=== PATIENT | female | born 1995 | race Caucasian/White ===

== ENCOUNTER 2018-04-25 18:54 | Emergency (ER) | payer OTHER ==
[2018-04-25 19:00] VITALS: BP 120/68
[2018-04-25] MEDS ORDERED: LIDOCAINE 2% VISCOUS SOLN 20 ML UDCUP PO ONE (19:14)
--- NOTE | 2018-04-25 19:14 | ER Document Report ---
HPI - HPI Patient complains to provider of: toothache Onset: Other Quality of pain: Achy - Several days Pain Level: 4 Context: 22-year-old female complaining of lower right dental decay and pain for several days. No fever or chills. No facial swelling. Associated Symptoms: None Exacerbated by: Other - Chewing Relieved by: Denies Similar symptoms previously: No Recently seen / treated by doctor: No - ROS ROS below otherwise negative: Yes Systems Reviewed and Negative: Yes All other systems reviewed and negative Past Medical History - General Information source: Patient - Social History Smoking Status: Never Smoker Lives with: Spouse/Significant other Family History: Reviewed & Not Pertinent - Medical History Medical History: Negative Surgical Hx: Negative Vertical Provider Document - CONSTITUTIONAL Agree With Documented VS: Yes Exam Limitations: No Limitations - INFECTION CONTROL TRAVEL OUTSIDE OF THE [place] IN LAST 30 DAYS: No - HEENT HEENT: negative: Pharyngeal Erythema Notes: Lower right second molar with decay and inflammation to the gingiva, no abscess - NECK Neck: Supple. negative: Lymphadenopathy-Left, Lymphadenopathy-Right Course - Re-evaluation Re-evalutation: 04/25/18 19:55 Patient was discharged prior to my physical exam accidentally because I typed someone else's paperwork on her chart. The patient has returned to the emergency department and I had examined her. She does have dental decay without abscess to the second lower right molar. She denies . Her treatment will be the topical lidocaine that was given to her initially penicillin Motrin and Tylenol. She does have a dentist in plans on seeing him soon. - Vital Signs Vital signs: Temp Pulse Resp BP Pulse Ox 98.6 F 72 20 120/68 100 04/25/18 18:59 04/25/18 18:59 04/25/18 18:59 04/25/18 18:59 04/25/18 18:59 Discharge - Discharge Clinical Impression: Dental pain and decay Condition: Good Disposition: HOME, SELF-CARE Instructions: [facility], Dentist, Penicillin V K ([facility]), Toothache ([facility]), Topical Lidocaine ([facility]), Warm Packs ([facility]) Additional Instructions: warm compress See the dentist Penicillin 4 times a day Tylenol up to 4000 mg a day for pain Motrin 800 mg up to 3 times a day for pain Return to the emergency room for any fever or increased pain or swelling Prescriptions: Ibuprofen [Motrin 800 mg Tablet] 800 mg PO Q8HP PRN #30 tablet PRN Reason: Penicillin V Potassium [Penicillin Vk 500 mg Tablet] 500 mg PO QID #40 tablet
== END 2018-04-25 20:00 | disposition home or self-care (01) ==
LOC: ER 18:54
DX: K02.9 Dental caries, unspecified (principal); K08.89 Other specified disorders of teeth and supporting structures; K05.10 Chronic gingivitis, plaque induced
CPT/HCPCS: 99282; J3490